=== PATIENT | female | born 1965 | race American Indian/Alaskan Native ===

== ENCOUNTER 2018-06-15 14:17 | Emergency (ER) | payer MEDICAID, OTHER ==
[2018-06-15] MEDS ORDERED: Bupivacaine 0.25% 10 ML SDV INJECT ONE (14:28)
[2018-06-15] MEDS ORDERED: Diphtheria,Pertussis(Acell),Tetanus Vaccine 0.5 ML SDV IM ONE (14:30)
--- NOTE | 2018-06-15 14:51 | EDM.PDOC ---
ED HPI GENERAL MEDICAL PROBLEM - General Chief Complaint: Skin Complaint Stated Complaint: SLIVER INSIDE NAIL Time Seen by Provider: 06/15/18 14:25 Source of Information: Reports: Patient History Limitations: Reports: No Limitations - History of Present Illness INITIAL COMMENTS - FREE TEXT/NARRATIVE: This 52 yo female patient reports to the ED with a sliver under her fingernail on her 3rd left finger. The patient reports she was cleaning the doorways 2 days ago when she got a wood sliver under her fingernail. The patient reports her boss attempted to remove the sliver, but was only able to get 1/2 of it. 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-Middle Pain Score (Numeric/FACES): 7 - Related Data Allergies Allergy/AdvReac Type Severity Reaction Status Date / Time aspirin Allergy Stomach Verified 06/15/18 14:27 Ache ibuprofen [From Motrin] Allergy Rash Verified 06/15/18 14:27 ketorolac tromethamine Allergy Stomach Verified 06/15/18 14:27 [From Toradol] Ache Home Meds: Home Meds Acetaminophen [Tylenol] 650 mg PO Q4H PRN 08/17/14 [History] Past Medical History - Past Health History Medical/Surgical History: Denies Medical/Surgical History HEENT History: Reports: None Cardiovascular History: Reports: None Respiratory History: Reports: None Gastrointestinal History: Reports: GERD Genitourinary History: Reports: None 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: Musculoskeletal History: Reports: None Other Musculoskeletal History: shoulder pain Neurological History: Reports: Migraines Psychiatric History: Reports: None Endocrine/Metabolic History: Reports: None Hematologic History: Reports: None Immunologic History: Reports: None Oncologic (Cancer) History: Reports: None Dermatologic History: Reports: None - Infectious Disease History Infectious Disease History: Reports: Chicken Pox, Measles, Mumps - Past Surgical History Head Surgeries/Procedures: Reports: None Social & Family History - Family History Family Medical History: Noncontributory - Tobacco Use Smoking Status *Q: Current Every Day Smoker Years of Tobacco use: 20 Packs/Tins Daily: 0.5 - Caffeine Use Caffeine Use: Reports: Soda - Recreational Drug Use Recreational Drug Use: No - Living Situation & Occupation Living situation: Reports: with Family Occupation: Unemployed ED ROS GENERAL - Review of Systems Review Of Systems: ROS reveals no pertinent complaints other than HPI. ED EXAM, SKIN/RASH Exam: See Below Exam Limited By: No Limitations General Appearance: Alert, WD/WN, Moderate Distress Eye Exam: Bilateral Eye: EOMI, Normal Inspection, PERRL Ears: Normal External Exam, Normal Canal, Hearing Grossly Normal, Normal TMs Nose: Normal Inspection, Normal Mucosa, No Blood Throat/Mouth: Normal Inspection, Normal Lips, Normal Teeth, Normal Gums, Normal Oropharynx, Normal Voice, No Airway Compromise Head: Atraumatic, Normocephalic Neck: Normal Inspection, Supple, Non-Tender, Full Range of Motion Respiratory/Chest: No Respiratory Distress, Lungs Clear, Normal Breath Sounds, No Accessory Muscle Use, Chest Non-Tender Cardiovascular: Normal Peripheral Pulses, Regular Rate, Rhythm, No Edema, No Gallop, No JVD, No Murmur, No Rub GI/Abdominal: Normal Bowel Sounds, Soft, Non-Tender, No Organomegaly, No Distention, No Abnormal Bruit, No Mass (Female) Exam: Deferred Rectal (Female) Exam: Deferred Back Exam: Normal Inspection, Full Range of Motion, NT Extremities: Arm Pain (left middle finger) Neurological: Alert, Oriented, CN II-XII Intact, Normal Cognition, Normal Gait, Normal Reflexes, No Motor/Sensory Deficits Psychiatric: Normal Affect, Normal Mood Skin: Warm, Dry, Intact, Normal Color, No Rash Location, Skin: Upper Extremity, Left Characteristics: Other Lymphatic: No Adenopathy ED SKIN PROCEDURES - Foreign Body Removal Indication:: Wood sliver under 3rd fingernail of left hand Consent Obtained:: Patient Performing Doctor:: Angelo Boateng Foreign Body Other Location Comment:: under 3rd fingernail on the left hand Anesthesia Type: Other (see below) (Digital block) Findings:: wood splinter was removed without difficulties with a small amount of purulent drainage Complications:: No Course - Vital Signs Last Recorded V/S: Last Vital Signs Temp 36.0 C 06/15/18 14:22 Pulse 86 06/15/18 14:22 Resp 16 06/15/18 14:22 BP 120/66 06/15/18 14:22 Pulse Ox 96 06/15/18 14:22 - Orders/Labs/Meds Orders: Active Orders 24 hr Category Date Time Status Vaccines to be Administered [RC] PER UNIT ROUTINE Care 06/15/18 14:30 Ordered Meds: Medications Discontinued Medications Generic Name Dose Route Start Last Admin Trade Name Obed PRN Reason Stop Dose Admin Bupivacaine HCl 10 ml 06/15/18 14:28 06/15/18 14:32 Sensorcaine-Mpf 0.25% INJECT 06/15/18 14:29 10 ml ONETIME ONE Administration Diphtheria/Tetanus/Acell Pertussis 0.5 ml 06/15/18 14:30 06/15/18 14:34 Adacel IM 06/15/18 14:31 0.5 ml .ONCE ONE Administration Departure - Departure Time of Disposition: 15:15 Disposition: Home, Self-Care 01 Condition: Fair Clinical Impression: Foreign body of hand, left, infected Qualifiers: Encounter type: initial encounter Qualified Code(s): S60.552A - Superficial foreign body of left hand, initial encounter; L08.9 - Local infection of the skin and subcutaneous tissue, unspecified - Discharge Information *PRESCRIPTION DRUG MONITORING PROGRAM REVIEWED*: Not Applicable *COPY OF PRESCRIPTION DRUG MONITORING REPORT IN PATIENT ISAAC: Not Applicable Instructions: Fingertip Infection, Sliver Removal, Care After Care Plan Goals: The patient was advised of the examination results during the visit. The sliver was removed without incident. The patient was discharged with a script for Keflex (500 mg) to take 1 by mouth 3 times per day for 10 days. If the patient has any additional symptoms or concerns, the patient should either return to the emergency department or visit her primary care facility. - My Orders Last 24 Hours: My Active Orders 06/15/18 14:30 Vaccines to be Administered [RC] PER UNIT ROUTINE - Assessment/Plan Last 24 Hours: My Active Orders 06/15/18 14:30 Vaccines to be Administered [RC] PER UNIT ROUTINE
[2018-06-15 15:24] VITALS: BP 110/59
== END 2018-06-15 15:25 | disposition home or self-care (01) ==
LOC: DL.ED 14:17
DX: S60.453A Superficial foreign body of left middle finger, initial encounter (principal); F17.210 Nicotine dependence, cigarettes, uncomplicated; Z88.8 Allergy status to other drugs, medicaments and biological substances; Z23 Encounter for immunization; X58.XXXA Exposure to other specified factors, initial encounter
CPT/HCPCS: 64450; 90471; 90715; 99283; J3490

== ENCOUNTER 2019-08-08 16:41 | Emergency (ER) | payer MEDICAID ==
[2019-08-08 17:33] VITALS: BP 148/97; PULSE 89
--- NOTE | 2019-08-08 18:20 | EDM.PDOC ---
ED HPI GENERAL MEDICAL PROBLEM - General Chief Complaint: Skin Complaint Stated Complaint: SPLINTER IN FINGER Time Seen by Provider: 08/08/19 17:30 Source of Information: Reports: Patient History Limitations: Reports: No Limitations - History of Present Illness INITIAL COMMENTS - FREE TEXT/NARRATIVE: This 53 yo female patient reports to the Ed with swelling to her right middle finger. The patient reports she injured her finger about 6 months ago and was feeling better. About a month ago, the patient reports she thinks she got a sliver under her fingernail. The patient reports she thinks she got the splinter out, but started to have increased swelling and pain 3-4 days ago. The patient reports she took some Tylenol, but has not had a clinic visit. The patient reports she has noticed increased pain when using her hand. Duration: Week(s):, Constant, Getting Worse Location: Reports: Upper Extremity, Right Quality: Reports: Ache, Throbbing Severity: Moderate Improves with: Reports: None Worsens with: Reports: None Context: Reports: Other Associated Symptoms: Reports: No Other Symptoms - Related Data Allergies Allergy/AdvReac Type Severity Reaction Status Date / Time aspirin Allergy Stomach Verified 08/08/19 17:21 Ache ibuprofen [From Motrin] Allergy Rash Verified 08/08/19 17:21 ketorolac tromethamine Allergy Stomach Verified 08/08/19 17:21 [From Toradol] Ache Home Meds: Home Meds . 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: Musculoskeletal History: Reports: Other (See Below) Other Musculoskeletal History: shoulder pain Neurological History: Reports: Migraines Psychiatric History: Reports: None Endocrine/Metabolic History: Reports: None Hematologic History: Reports: None Immunologic History: Reports: None Oncologic (Cancer) History: Reports: None Dermatologic History: Reports: None - Infectious Disease History Infectious Disease History: Reports: Chicken Pox, Measles, Mumps - Past Surgical History Head Surgeries/Procedures: Reports: None Female Surgical History: Reports: Section Social & Family History - Family History Family Medical History: Noncontributory - Tobacco Use Smoking Status *Q: Current Every Day Smoker Years of Tobacco use: 35 Packs/Tins Daily: 0.7 - Caffeine Use Caffeine Use: Reports: Soda - Recreational Drug Use Recreational Drug Use: No - Living Situation & Occupation Living situation: Reports: with Family Occupation: Unemployed ED ROS GENERAL - Review of Systems Review Of Systems: Comprehensive ROS is negative, except as noted in HPI. ED EXAM, SKIN/RASH Exam: See Below Exam Limited By: No Limitations General Appearance: Alert, WD/WN, Moderate Distress Eye Exam: Bilateral Eye: EOMI, Normal Inspection, PERRL Ears: Normal External Exam, Normal Canal, Hearing Grossly Normal, Normal TMs Nose: Normal Inspection, Normal Mucosa, No Blood Throat/Mouth: Normal Inspection, Normal Lips, Normal Teeth, Normal Gums, Normal Oropharynx, Normal Voice, No Airway Compromise Head: Atraumatic, Normocephalic Neck: Normal Inspection, Supple, Non-Tender, Full Range of Motion Respiratory/Chest: No Respiratory Distress, Lungs Clear, Normal Breath Sounds, No Accessory Muscle Use, Chest Non-Tender Cardiovascular: Normal Peripheral Pulses, Regular Rate, Rhythm, No Edema, No Gallop, No JVD, No Murmur, No Rub GI/Abdominal: Normal Bowel Sounds, Soft, Non-Tender, No Organomegaly, No Distention, No Abnormal Bruit, No Mass (Female) Exam: Deferred Rectal (Female) Exam: Deferred Back Exam: Normal Inspection, Full Range of Motion, NT Extremities: Arm Pain (right hand pain (distal middle finger)) Neurological: Alert, Oriented, CN II-XII Intact Psychiatric: Normal Affect, Normal Mood Location, Skin: Upper Extremity, Right Characteristics: Erythematous Associated features: Warmth, Tenderness, Swelling, Inflammation. No: Weeping Lymphatic: No Adenopathy Course - Vital Signs Last Recorded V/S: Last Vital Signs Temp 36.6 C 08/08/19 17:16 Pulse 89 08/08/19 17:16 Resp 18 08/08/19 17:16 BP 148/97 H 08/08/19 17:16 Pulse Ox 97 08/08/19 17:16 - Orders/Labs/Meds Orders: Active Orders 24 hr Category Date Time Status CULTURE BLOOD [BC] Stat Lab 08/08/19 17:37 Ordered Labs: Laboratory Tests 03/15/20 03/15/20 03/15/20 Range/Units 18:12 18:12 18:12 WBC 11.4 H (5.0-10.0) 10^3/uL RBC 4.48 (4.2-5.4) 10^6/uL Hgb 13.0 (12.0-16.0) g/dL Hct 38.6 (37.0-47.0) % MCV 86.2 (80-100) fL MCH 29.0 (27.0-34.0) pg MCHC 33.7 (33.0-35.0) g/dL Plt Count 337 D (150-450) 10^3/uL Neut % (Auto) 74.6 (42.2-75.2) % Lymph % (Auto) 17.2 L (20.5-50.1) % [place] % (Auto) 6.4 (2-8) % Eos % (Auto) 1.3 (1.0-3.0) % Baso % (Auto) 0.5 (0.0-1.0) % Sodium 142 (136-145) mmol/L Potassium 4.1 (3.5-5.1) mmol/L Chloride 104 (98-107) mmol/L Carbon Dioxide 31 (21-32) mmol/L Anion Gap 11.1 (7-13) mEq/L BUN 14 (7-18) mg/dL Creatinine 0.57 (0.55-1.02) mg/dL Est Cr Clr Drug Dosing 108.44 mL/min Estimated GFR (MDRD) > 60 BUN/Creatinine Ratio 24.6 (No establ ref range) Glucose 93 (74-99) mg/dL Lactic Acid 1.2 (0.4-2.0) mmol/L Calcium 8.6 (8.5-10.1) mg/dL Total Bilirubin 0.3 (0.2-1.0) mg/dL AST 13 L (15-37) U/L ALT 19 (14-59) U/L Alkaline Phosphatase 80 (46-116) U/L Total Protein 6.6 (6.4-8.2) g/dL Albumin 3.2 L (3.4-5.0) g/dL Globulin 3.4 Albumin/Globulin Ratio 0.94 Departure - Departure Time of Disposition: 19:15 Disposition: Home, Self-Care 01 Condition: Fair Clinical Impression: Cellulitis of right middle finger - Discharge Information *PRESCRIPTION DRUG MONITORING PROGRAM REVIEWED*: Not Applicable *COPY OF PRESCRIPTION DRUG MONITORING REPORT IN PATIENT ISAAC: Not Applicable Instructions: Cellulitis, Adult, [id number] Forms: ED Department Discharge Care Plan Goals: The patient was advised of the examination, lab and x-ray results during the visit. The patient was discharged with a script for Keflex (500 mg) #40 to take 1 by mouth 4 times per day for 10 days. The patient should continue to soak the area. The patient should follow-up with her primary care facility at the completion of her antibiotic dose. If the patient has any additional symptoms or concerns, the patient should either return to the emergency department or visit her primary care facility. Sepsis Event Note - Evaluation Sepsis Screening Result: No Definite Risk - Focused Exam Vital Signs: Vital Signs Temp Pulse Resp BP Pulse Ox 08/08/19 17:16 36.6 C 89 18 148/97 H 97 Date Exam was Performed: 08/08/19 Time Exam was Performed: 19:15 - My Orders Last 24 Hours: My Active Orders 08/08/19 17:37 CULTURE BLOOD [BC] Stat - Assessment/Plan Last 24 Hours: My Active Orders 08/08/19 17:37 CULTURE BLOOD [BC] Stat
[2019-08-08 18:40] LABS: ANION GAP 11.1 mEq/L (7-13); CHLORIDE,CL 104 mmol/L (98-107); SODIUM,NA 142 mmol/L (136-145)
[2019-08-08] MEDS: Cephalexin 500 MG Cap PO ONE (19:23)
== END 2019-08-08 19:25 | disposition home or self-care (01) ==
LOC: DL.ED 16:41
DX: L03.012 Cellulitis of left finger (principal); F17.210 Nicotine dependence, cigarettes, uncomplicated; K21.9 Gastro-esophageal reflux disease without esophagitis; Z88.6 Allergy status to analgesic agent
CPT/HCPCS: 36415; 73140; 80053; 83605; 85025; 87040; 99283; A9270

== ENCOUNTER 2020-04-09 11:30 | Emergency (ER) | payer MEDICAID | END 2020-04-09 12:29 | disposition left against medical advice (07) | LOC: DL.ED 11:30 | DX: Z53.21 Procedure and treatment not carried out due to patient leaving prior to being seen by health care provider (principal) ==

== ENCOUNTER 2020-08-01 02:33 | Emergency (ER) | payer MEDICAID ==
[2020-08-01 02:53] VITALS: BP 133/76; PULSE 83
[2020-08-01] MEDS ORDERED: Acetaminophen/oxyCODONE 325-5 MG Tab PO ONE ×2 (02:54→03:07)
[2020-08-01] MEDS ORDERED: Acetaminophen/oxyCODONE 325-5 MG Tab ONE (03:04)
--- NOTE | 2020-08-01 07:03 | CR ---
PROCEDURE INFORMATION: Exam: XR Right Shoulder Exam date and time: 08/01/2020 3:02 AM Age: 54 years old Clinical indication: Pain and injury or trauma; Fall; Blunt trauma (contusions or hematomas); Shoulder; Right; Additional info: Fall tonight TECHNIQUE: Imaging protocol: XR Right shoulder. Views: 2 or more views. COMPARISON: MR Shoulder wo Cont Rt 07/31/2020 10:53 AM FINDINGS: Bones/joints: Osteoarthritis involving the AC joint and glenohumeral joint. No acute fracture or dislocation. Soft tissues: Normal. IMPRESSION: 1. Osteoarthritis involving the AC joint and glenohumeral joint. 2. No acute fracture or dislocation.
== END 2020-08-01 04:00 | disposition home or self-care (01) ==
LOC: DL.ED 02:33
DX: S46.011A Strain of muscle(s) and tendon(s) of the rotator cuff of right shoulder, initial encounter (principal); S80.212A Abrasion, left knee, initial encounter; W18.30XA Fall on same level, unspecified, initial encounter
CPT/HCPCS: 73030-RT; 99282; 99283-25; A9270-GY

== ENCOUNTER 2020-08-08 13:50 | Emergency (ER) | payer MEDICAID ==
[2020-08-08 13:58] VITALS: BP 128/56; PULSE 96
== END 2020-08-08 14:30 | disposition left against medical advice (07) ==
LOC: DL.ED 13:50
DX: Z53.21 Procedure and treatment not carried out due to patient leaving prior to being seen by health care provider (principal)

== ENCOUNTER 2021-07-15 08:58 | Emergency (ER) | payer MEDICAID ==
[2021-07-15] MEDS ORDERED: Acetaminophen 500 MG Tab PO ONE (09:16)
[2021-07-15 09:20] VITALS: BP 132/73; PULSE 90
== END 2021-07-15 10:26 | disposition home or self-care (01) ==
LOC: DL.ED 08:58
DX: S91.332A Puncture wound without foreign body, left foot, initial encounter (principal); L08.9 Local infection of the skin and subcutaneous tissue, unspecified; Z88.6 Allergy status to analgesic agent; Z88.8 Allergy status to other drugs, medicaments and biological substances; W45.0XXA Nail entering through skin, initial encounter
CPT/HCPCS: 73620; 99283; A9270; 99282

== ENCOUNTER 2021-11-27 20:00 | Emergency (ER) | payer MEDICAID ==
[2021-11-27] MEDS ORDERED: Acetaminophen 500 MG Tab PO ONE (20:14)
[2021-11-27] MEDS ORDERED: Orphenadrine 60 MG/2 ML Inj IM ONE (20:14)
[2021-11-27 21:15] VITALS: BP 138/84; PULSE 76
[2021-11-27] MEDS ORDERED: Acetaminophen 500 MG Tab ONE (21:39)
== END 2021-11-27 21:38 | disposition home or self-care (01) ==
LOC: DL.ED 20:00
DX: M41.26 Other idiopathic scoliosis, lumbar region (principal); Z79.82 Long term (current) use of aspirin; Z88.6 Allergy status to analgesic agent; W01.0XXA Fall on same level from slipping, tripping and stumbling without subsequent striking against object, initial encounter
CPT/HCPCS: 72072; 72100; 99283; A9270

== ENCOUNTER 2021-12-03 15:58 | Emergency (ER) | payer MEDICAID ==
[2021-12-03 16:29] VITALS: BP 133/75; PULSE 70
[2021-12-03] MEDS ORDERED: Dexamethasone 4 MG/ML SDV IM ONE (17:05)
== END 2021-12-03 17:33 | disposition home or self-care (01) ==
LOC: DL.ED 15:58
DX: M62.830 Muscle spasm of back (principal); S20.222A Contusion of left back wall of thorax, initial encounter; F17.210 Nicotine dependence, cigarettes, uncomplicated; Z88.8 Allergy status to other drugs, medicaments and biological substances; Z88.6 Allergy status to analgesic agent; W01.198A Fall on same level from slipping, tripping and stumbling with subsequent striking against other object, initial encounter
CPT/HCPCS: 96372; 99282; 99283; J1100; J3360

== ENCOUNTER 2023-01-29 08:34 | Emergency (ER) | payer OTHER, MEDICAID ==
[2023-01-29 08:49] VITALS: BP 91/63; PULSE 91
[2023-01-29] MEDS ORDERED: Bacitracin Oint 1 GM U/D Packet TOP ONE (08:49)
[2023-01-29] MEDS ORDERED: Acetaminophen/HYDROcodone 325-5 MG Tab PO ONE (08:49)
== END 2023-01-29 09:22 | disposition home or self-care (01) ==
LOC: DL.ED 08:34
DX: S51.012A Laceration without foreign body of left elbow, initial encounter (principal); S60.511A Abrasion of right hand, initial encounter; S80.212A Abrasion, left knee, initial encounter; F17.210 Nicotine dependence, cigarettes, uncomplicated; Z88.6 Allergy status to analgesic agent; V28.49XA Other motorcycle driver injured in noncollision transport accident in traffic accident, initial encounter
CPT/HCPCS: 73070-LT; 99282; 99283; A9270-GY